=== PATIENT | male | born 1965 | race African-American/Black ===

== ENCOUNTER 2019-10-09 09:18 | Emergency (ER) | payer BC ==
[2019-10-09] MEDS ORDERED: KETOROLAC 30 MG/ML INJ ONE (09:58)
--- NOTE | 2019-10-09 10:19 | ER ---
Nurse's Notes [facility] Name: Augustus Parks Age: 53 yrs Sex: Male : 1965 Arrival Date: 10/09/2019 Time: 09:20 Bed 9 Private MD: Diagnosis: Sciatica, left side Presentation: 10/09 09:31 Presenting complaint: Patient states: left low back pain radiating to leg, took a road iw trip 2 weeks ago and was sitting in a twisted position, has been having pain since then. Transition of care: patient was not received from another setting of care. Onset of symptoms was September 29, 2019. Risk Assessment: Do you want to hurt yourself or someone else? Patient reports no desire to harm self or others. Initial Sepsis Screen: Does the patient meet any 2 criteria? No. Patient's initial sepsis screen is negative. Does the patient have a suspected source of infection? No. Patient's initial sepsis screen is negative. Care prior to arrival: None. 09:31 Method Of Arrival: Ambulatory iw 09:31 Acuity: LOBITO 4 iw Triage Assessment: 09:45 General: Appears in no apparent distress. Behavior is calm. Musculoskeletal: Range of iw motion: intact in all extremities. Historical: - Allergies: 09:32 No Known Allergies; iw - Home Meds: 09:32 unknown BP medicine [Active]; iw - PMHx: 09:32 Hypertension; iw - PSHx: 09:32 Hernia repair; iw - Immunization history:: Adult Immunizations. - Social history:: Smoking status: Patient uses tobacco products, smokes one-half pack cigarettes per day. - Ebola Screening: : Patient negative for fever greater than or equal to 101.5 degrees Fahrenheit, and additional compatible Ebola Virus Disease symptoms Patient denies exposure to infectious person Patient denies travel to an Ebola-affected area in the 21 days before illness onset No symptoms or risks identified at this time. Screenin:00 Abuse screen: Denies threats or abuse. Denies injuries from another. Nutritional iw screening: No deficits noted. Tuberculosis screening: No symptoms or risk factors identified. Fall Risk None identified. Assessment: 09:45 General: Appears in no apparent distress. Behavior is calm, cooperative. Pain: iw Complains of pain in left low back Pain radiates to left leg. Neuro: Level of Consciousness is awake, alert, obeys commands, Oriented to person, place, time, situation, Moves all extremities. Full function Denies weakness in right leg and left leg. Cardiovascular: Patient's skin is warm and dry. Respiratory: Respiratory effort is even, unlabored, Respiratory pattern is regular. GI: No signs and/or symptoms were reported involving the gastrointestinal system. : No signs and/or symptoms were reported regarding the genitourinary system. Derm: Skin is intact, is healthy with good turgor. Musculoskeletal: Range of motion: intact in all extremities, Reports pain in left low back and left leg. Vital Signs: 09:32 BP 138 / 94; Pulse 84; Resp 16; Temp 98.2; Pulse Ox 99% on R/A; Weight 111.13 kg; iw Height 6 ft. 6 in. (198.12 cm); Pain 7/10; 09:32 Body Mass Index 28.31 (111.13 kg, 198.12 cm) iw ED Course: 09:20 Patient arrived in ED. rg4 09:32 Triage completed. iw 09:32 Arm band placed on. iw 09:37 Ciera Pickett FNP-C is PHCP. kb 09:37 Kenyon Ramos MD is Attending Physician. kb 09:45 Patient has correct armband on for positive identification. iw 09:57 Kathie Mcginnis, RN is Primary Nurse. iw 10:32 No provider procedures requiring assistance completed. Patient did not have IV access iw during this emergency room visit. Administered Medications: 10:00 Drug: TORadol 30 mg Route: IM; Site: left deltoid; iw Outcome: 10:18 Discharge ordered by . kb 10:32 Discharged to home ambulatory. iw 10:32 Condition: good 10:32 Discharge instructions given to patient, Instructed on discharge instructions, follow up and referral plans. medication usage, Demonstrated understanding of instructions, follow-up care, medications, Prescriptions given X 2. 10:33 Patient left the ED. iw Signatures: Ciera Pickett FNP-C FNP-Kathie Sifuentes, RN RN Krystina Winston rg4
--- NOTE | 2019-10-09 10:19 | EDPHYS ---
Physician Documentation [facility] Name: Augustus Parks Age: 53 yrs Sex: Male : 1965 Arrival Date: 10/09/2019 Time: 09:20 Bed 9 Private MD: ED Physician Kenyon Ramos HPI: 10/09 10:02 This 53 yrs old Black Male presents to ER via Ambulatory with complaints of Back Pain. kb 10:02 The patient presents with pain that is acute, with no known mechanism of injury. kb 10:20 The symptoms are located in the left low back. Onset: The symptoms/episode kb began/occurred 3 week(s) ago, and became worse 1 week(s) ago. The pain radiates to the left leg. Associated signs and symptoms: The patient has no apparent associated signs or symptoms. The problem was sustained without known cause. Modifying factors: The patient symptoms are alleviated by nothing, the patient symptoms are aggravated by any movement. Severity of symptoms: At their worst the symptoms were moderate, in the emergency department the symptoms are unchanged. The patient has not experienced similar symptoms in the past. The patient has not recently seen a physician. 10:22 Pt reports lower left back/buttock pain that radiates down left leg. States pain kb started a few weeks ago and got worse a week ago. Historical: - Allergies: 09:32 No Known Allergies; iw - Home Meds: 09:32 unknown BP medicine [Active]; iw - PMHx: 09:32 Hypertension; iw - PSHx: 09:32 Hernia repair; iw - Immunization history:: Adult Immunizations. - Social history:: Smoking status: Patient uses tobacco products, smokes one-half pack cigarettes per day. - Ebola Screening: : Patient negative for fever greater than or equal to 101.5 degrees Fahrenheit, and additional compatible Ebola Virus Disease symptoms Patient denies exposure to infectious person Patient denies travel to an Ebola-affected area in the 21 days before illness onset No symptoms or risks identified at this time. ROS: 09:58 Constitutional: Negative for fever, chills, and weight loss, ENT: Negative for injury, kb pain, and discharge, Neck: Negative for injury, pain, and swelling, Cardiovascular: Negative for chest pain, palpitations, and edema, Respiratory: Negative for shortness of breath, cough, wheezing, and pleuritic chest pain, Abdomen/GI: Negative for abdominal pain, nausea, vomiting, diarrhea, and constipation, : Negative for injury, bleeding, discharge, and swelling, MS/Extremity: Negative for injury and deformity, Skin: Negative for injury, rash, and discoloration, Neuro: Negative for headache, weakness, numbness, tingling, and seizure. 09:58 Back: Positive for pain at rest, pain with movement, radiated pain, of the left low back. Exam: 09:58 Constitutional: This is a well developed, well nourished patient who is awake, alert, kb and in no acute distress. Head/Face: Normocephalic, atraumatic. ENT: Nares patent. No nasal discharge, no septal abnormalities noted. Tympanic membranes are normal and external auditory canals are clear. Oropharynx with no redness, swelling, or masses, exudates, or evidence of obstruction, uvula midline. Mucous membranes moist. Neck: Trachea midline, no thyromegaly or masses palpated, and no cervical lymphadenopathy. Supple, full range of motion without nuchal rigidity, or vertebral point tenderness. No Meningismus. Chest/axilla: Normal chest wall appearance and motion. Nontender with no deformity. No lesions are appreciated. Cardiovascular: Regular rate and rhythm with a normal S1 and S2. No gallops, murmurs, or rubs. Normal PMI, no JVD. No pulse deficits. Respiratory: Lungs have equal breath sounds bilaterally, clear to auscultation and percussion. No rales, rhonchi or wheezes noted. No increased work of breathing, no retractions or nasal flaring. Abdomen/GI: Soft, non-tender, with normal bowel sounds. No distension or tympany. No guarding or rebound. No evidence of tenderness throughout. Skin: Warm, dry with normal turgor. Normal color with no rashes, no lesions, and no evidence of cellulitis. MS/ Extremity: Pulses equal, no cyanosis. Neurovascular intact. Full, normal range of motion. Neuro: Awake and alert, GCS 15, oriented to person, place, time, and situation. Cranial nerves II-XII grossly intact. Motor strength 5/5 in all extremities. Sensory grossly intact. Cerebellar exam normal. Normal gait. 09:58 Back: pain, that is moderate, of the left low back, ROM is painful, with all movement, normal spinal alignment noted. Vital Signs: 09:32 BP 138 / 94; Pulse 84; Resp 16; Temp 98.2; Pulse Ox 99% on R/A; Weight 111.13 kg; iw Height 6 ft. 6 in. (198.12 cm); Pain 7/10; 09:32 Body Mass Index 28.31 (111.13 kg, 198.12 cm) iw MDM: 09:37 Patient medically screened. kb 09:56 Data reviewed: vital signs, nurses notes. Data interpreted: Pulse oximetry: on room air kb is 99 %. Interpretation: normal. ED course: Pt is adamant about getting an x-ray. Educated that an x-ray was unlikely to show any acute abnormality based on history and physical exam.. 10:16 Counseling: I had a detailed discussion with the patient and/or guardian regarding: the kb historical points, exam findings, and any diagnostic results supporting the discharge/admit diagnosis, the need for outpatient follow up, a family practitioner, to return to the emergency department if symptoms worsen or persist or if there are any questions or concerns that arise at home. 10:19 ED course: Pt is now refusing x-ray after "thinking about it.". kb Administered Medications: 10:00 Drug: TORadol 30 mg Route: IM; Site: left deltoid; iw Disposition: 15:56 Co-signature as Attending Physician, Kenyon Ramos MD. rn Disposition: 10/09/19 10:18 Discharged to Home. Impression: Sciatica, left side. - Condition is Stable. - Discharge Instructions: Sciatica, [id number], Back Exercises, [id number]. - Prescriptions for Cyclobenzaprine 10 mg Oral Tablet - take 1 tablet by ORAL route every 8 hours As needed; 21 tablet. Diclofenac Sodium 75 mg Oral Tablet, Delayed Release (E.C.) - take 1 tablet by ORAL route 2 times per day As needed; 30 tablet. - Medication Reconciliation Form, Thank You Letter, Antibiotic Education, Prescription Opioid Use, Work release form form. - Follow up: Emergency Department; When: As needed; Reason: Worsening of condition. Follow up: Private Physician; When: 2 - 3 days; Reason: Recheck today's complaints, Continuance of care, Re-evaluation by your physician. Signatures: Dispatcher [employer] Ciera Coleman, OPHTHALMIC ASST-C OPHTHALMIC ASST-Ckb Kathie Mcginnis, RN RN iw Kenyon Ramos MD MD rn physician office: (The following items were deleted from the chart) 10:24 09:55 Hip Left 2 View+RAD.RAD.BRZ ordered. [facility] 10:33 10:18 10/09/2019 10:18 Discharged to Home. Impression: Sciatica, left side. Condition iw is Stable. Forms are Medication Reconciliation Form, Thank You Letter, Antibiotic Education, Prescription Opioid Use. Follow up: Emergency Department; When: As needed; Reason: Worsening of condition. Follow up: Private Physician; When: 2 - 3 days; Reason: Recheck today's complaints, Continuance of care, Re-evaluation by your physician. kb
[2019-10-09 10:55] VITALS: BP 138/94; TEMP 98.2; O2SAT 99
== END 2019-10-09 10:33 | disposition home or self-care (01) ==
LOC: ER 09:18
DX: M54.32 Sciatica, left side (principal)
CPT/HCPCS: 96372; 99283

== ENCOUNTER 2020-05-23 11:26 | Emergency (ER) | payer BC ==
[2020-05-23 14:09] LABS: Urine Blood NEGATIVE (NEG); Urine Glucose NEGATIVE (NEG); Urine Protein 1+ (NEG); Urine Specific Gravity 1.025 (1.005-1.030)
--- NOTE | 2020-05-23 14:53 | RAD REPORT ---
EXAM DESCRIPTION: CT - Spine Lumbar Wo Con - 05/23/2020 2:33 pm CLINICAL HISTORY: LOWER BACK PAIN COMPARISON: None. TECHNIQUE: Thin section axial imaging of the lumbar spine was performed. Sagittal and coronal recon struction images were generated and reviewed. All CT scans are performed using dose optimization technique as appropriate and may include automated exposure control or mA/KV adjustment according to patient size. FINDINGS: Lumbar bodies are normal in height and alignment. No fracture or acute lumbar finding. Mil d facet joint degenerative changes are present in the lower lumbar spine. No pars defects are identif ied. There is no paraspinal mass seen. Central canal detail is inherently limited on CT imaging. No disc herniation suspected. There is disc bulge at L4-5 in the central canal and exit foramina. No central spinal stenosis seen. Mild bilatera l foraminal stenosis is suspected. . IMPRESSION: L4-5 disc bulge and endplate spurring likely causing bilateral foraminal encroachment. N o disc herniation or central spinal stenosis at this level. Remainder of the examination without significant finding.
[2020-05-23] MEDS ORDERED: ACETAMINOPHEN 500 MG TAB ONE (15:13)
--- NOTE | 2020-05-23 15:27 | EDPHYS ---
Physician Documentation [facility] Name: Augustus Parks Age: 54 yrs Sex: Male : 1965 Arrival Date: 05/23/2020 Time: 11:32 Bed 25 Private MD: ED Physician Sundeep Herman HPI: 05/23 14:48 This 54 yrs old Black Male presents to ER via Ambulatory with complaints of Low Back mh7 Pain. 14:48 The patient presents with pain that is acute. The symptoms are located in the low back. mh7 The pain does not radiate. The problem was sustained when bending over, when lifting heavy object, from twisting. Onset: The symptoms/episode began/occurred 1 week(s) ago. Modifying factors: The patient symptoms are alleviated by remaining still, the patient symptoms are aggravated by movement. Associated signs and symptoms: Pertinent negatives: abdominal pain, chest pain, constipation, dysuria, fever, headache, hematuria, incontinence, nausea, numbness, tingling, urinary retention, vomiting, weakness. Severity of symptoms: At their worst the symptoms were moderate, yesterday, in the emergency department the symptoms have improved, moderately. The patient has experienced similar episodes in the past, a few times. Historical: - Allergies: 11:43 No Known Allergies; ll1 - PMHx: 11:43 Hypertension; ll1 - PSHx: 11:43 Hernia repair; ll1 - Immunization history:: Adult Immunizations up to date. - Social history:: Smoking status: Patient reports the use of cigarette tobacco products, smokes one-half pack cigarettes per day, Patient/guardian denies using alcohol, street drugs. ROS: 14:48 Constitutional: Negative for fever, chills, and weight loss, Eyes: Negative for injury, mh7 pain, redness, and discharge, ENT: Negative for injury, pain, and discharge, Neck: Negative for injury, pain, and swelling, Cardiovascular: Negative for chest pain, palpitations, and edema, Respiratory: Negative for shortness of breath, cough, wheezing, and pleuritic chest pain, Abdomen/GI: Negative for abdominal pain, nausea, vomiting, diarrhea, and constipation, : Negative for injury, bleeding, discharge, and swelling, MS/Extremity: Negative for injury and deformity, Skin: Negative for injury, rash, and discoloration, Neuro: Negative for headache, weakness, numbness, tingling, and seizure, Psych: Negative for depression, anxiety, suicide ideation, homicidal ideation, and hallucinations, Allergy/Immunology: Negative for hives, rash, and allergies, Endocrine: Negative for neck swelling, polydipsia, polyuria, polyphagia, and marked weight changes, Hematologic/Lymphatic: Negative for swollen nodes, abnormal bleeding, and unusual bruising. Exam: 14:48 Constitutional: This is a well developed, well nourished patient who is awake, alert, mh7 and in no acute distress. Head/Face: Normocephalic, atraumatic. Eyes: Pupils equal round and reactive to light, extra-ocular motions intact. Lids and lashes normal. Conjunctiva and sclera are non-icteric and not injected. Cornea within normal limits. Periorbital areas with no swelling, redness, or edema. ENT: Nares patent. No nasal discharge, no septal abnormalities noted. Tympanic membranes are normal and external auditory canals are clear. Oropharynx with no redness, swelling, or masses, exudates, or evidence of obstruction, uvula midline. Mucous membranes moist. Neck: Trachea midline, no thyromegaly or masses palpated, and no cervical lymphadenopathy. Supple, full range of motion without nuchal rigidity, or vertebral point tenderness. No Meningismus. Chest/axilla: Normal chest wall appearance and motion. Nontender with no deformity. No lesions are appreciated. Cardiovascular: Regular rate and rhythm with a normal S1 and S2. No gallops, murmurs, or rubs. Normal PMI, no JVD. No pulse deficits. Respiratory: Lungs have equal breath sounds bilaterally, clear to auscultation and percussion. No rales, rhonchi or wheezes noted. No increased work of breathing, no retractions or nasal flaring. Abdomen/GI: Soft, non-tender, with normal bowel sounds. No distension or tympany. No guarding or rebound. No evidence of tenderness throughout. 14:48 Skin: Warm, dry with normal turgor. Normal color with no rashes, no lesions, and no evidence of cellulitis. MS/ Extremity: Pulses equal, no cyanosis. Neurovascular intact. Full, normal range of motion. Neuro: Awake and alert, GCS 15, oriented to person, place, time, and situation. Cranial nerves II-XII grossly intact. Motor strength 5/5 in all extremities. Sensory grossly intact. Cerebellar exam normal. Normal gait. Psych: Awake, alert, with orientation to person, place and time. Behavior, mood, and affect are within normal limits. 14:48 Back: pain, that is moderate, of the lumbar area, ROM is painful, with all movement, normal spinal alignment noted, CVA tenderness, is absent, vertebral tenderness, is appreciated at lumbar, muscle spasm, is appreciated in the lumbar area, Straight leg raises: of both lower extremities does not illicit pain. Vital Signs: 11:41 BP 124 / 86; Pulse 86; Resp 18; Temp 98.2; Pulse Ox 97% ; Pain 7/10; ll1 13:29 BP 132 / 89 LA (auto/lg); Pulse 68; Resp 16; Pulse Ox 98% on R/A; jp3 14:10 BP 133 / 89; Pulse 59; Resp 15 S; Pulse Ox 100% on R/A; ca1 15:16 BP 135 / 79; Pulse 52; Resp 16 S; Pulse Ox 100% on R/A; ca1 MDM: 15:24 Differential diagnosis: arthritis, strain, fracture, sciatica, contusion, Herniated mh7 disc UTI. Data reviewed: vital signs, nurses notes, lab test result(s), urinalysis, radiologic studies, CT scan. Data interpreted: Pulse oximetry: on room air is 100 %. Interpretation: normal. Counseling: I had a detailed discussion with the patient and/or guardian regarding: the historical points, exam findings, and any diagnostic results supporting the discharge/admit diagnosis, lab results, radiology results, the need for outpatient follow up, to return to the emergency department if symptoms worsen or persist or if there are any questions or concerns that arise at home. Response to treatment: the patient's symptoms have markedly improved after treatment. 15:[address] [facility] 05/23 13:30 Order name: Urine Dipstick--Ancillary (enter results); Complete Time: 14:16 eb 05/23 14:18 Order name: CT Lumbar Spine Wo Con; Complete Time: 15:17 [facility] Administered Medications: 15:07 Drug: Tylenol 1000 mg Route: PO; ca1 15:38 Follow up: Response: No adverse reaction; Pain is decreased ca1 Disposition: 05/23/20 15:26 Discharged to Home. Impression: Low back pain. - Condition is Stable. - Discharge Instructions: Back Pain, Adult, Back Injury Prevention, [id number]. - Prescriptions for Robaxin 500 mg Oral Tablet - take 2 tablet by ORAL route every 6 hours As needed; 40 tablet. Tramadol 50 mg Oral Tablet - take 1 tablet by ORAL route every 8 hours as needed; 12 tablet. - Medication Reconciliation Form, Thank You Letter, Antibiotic Education, Prescription Opioid Use form. - Follow up: Private Physician; When: 1 - 2 days; Reason: Worsening of condition, Recheck today's complaints, Re-evaluation by your physician. - Problem is an acute exacerbation. - Symptoms have improved. Signatures: Dispatcher [employer] EDMS Frances Khan RN RN ca1 Gardenia Harman RN RN ll1 Sundeep Herman MD MD mh7 Corrections: (The following items were deleted from the chart) 15:39 15:26 05/23/2020 15:26 Discharged to Home. Impression: Low back pain. Condition is ca1 Stable. Forms are Medication Reconciliation Form, Thank You Letter, Antibiotic Education, Prescription Opioid Use. Follow up: Private Physician; When: 1 - 2 days; Reason: Worsening of condition, Recheck today's complaints, Re-evaluation by your physician. Problem is an acute exacerbation. Symptoms have improved. mh7
--- NOTE | 2020-05-23 15:27 | ER ---
Nurse's Notes [facility] Name: Augustus Parks Age: 54 yrs Sex: Male : 1965 Arrival Date: 05/23/2020 Time: 11:32 Bed 25 Private MD: Diagnosis: Low back pain Presentation: 05/23 11:41 Chief complaint: Patient states: 3 days of left lower back pain, malaise, decreased ll1 appetite. Had diarrhea that has resolved today, slight nausea. No fever or cough. Coronavirus screen: Proceed with normal triage. Patient denies a cough. Patient reports shortness of breath or difficulty breathing. Patient denies measured and/or subjective temperature greater than 100.4F prior to today's visit. Patient denies travel on a cruise ship or to a country the [facility] currently lists as an affected area. Patient denies contact with known and/or suspected case of COVID-19. Ebola Screen: Patient denies travel to an Ebola-affected area in the 21 days before illness onset. Initial Sepsis Screen: Does the patient meet any 2 criteria? No. Patient's initial sepsis screen is negative. Risk Assessment: Do you want to hurt yourself or someone else? Patient reports no desire to harm self or others. Onset of symptoms was May 20, 2020. 11:41 Method Of Arrival: Ambulatory ll1 11:41 Acuity: LOBITO 3 ll1 13:17 Initial Sepsis Screen: Does the patient have a suspected source of infection? No. ca1 Patient's initial sepsis screen is negative. Historical: - Allergies: 11:43 No Known Allergies; ll1 - PMHx: 11:43 Hypertension; ll1 - PSHx: 11:43 Hernia repair; ll1 - Immunization history:: Adult Immunizations up to date. - Social history:: Smoking status: Patient reports the use of cigarette tobacco products, smokes one-half pack cigarettes per day, Patient/guardian denies using alcohol, street drugs. Screenin:15 Abuse screen: Denies threats or abuse. Denies injuries from another. Nutritional ca1 screening: No deficits noted. Tuberculosis screening: No symptoms or risk factors identified. Fall Risk None identified. Assessment: 13:15 General: Appears in no apparent distress. comfortable, Behavior is calm, cooperative, ca1 appropriate for age. Pain: Complains of pain in low back area Pain currently is 7 out of 10 on a pain scale. Neuro: Level of Consciousness is awake, alert, obeys commands, Oriented to person, place, time, situation, Appropriate for age. Cardiovascular: Heart tones S1 S2 present Capillary refill < 3 seconds Patient's skin is warm and dry. Respiratory: Airway is patent Respiratory effort is even, unlabored, Respiratory pattern is regular, symmetrical, Breath sounds are clear bilaterally. GI: Abdomen is flat, non-distended, Bowel sounds present X 4 quads. Abd is soft and non tender X 4 quads. Reports diarrhea. : No signs and/or symptoms were reported regarding the genitourinary system. EENT: No signs and/or symptoms were reported regarding the EENT system. Derm: Skin is intact, is healthy with good turgor, Skin is pink, warm \T\ dry. Musculoskeletal: Circulation, motion, and sensation intact. Capillary refill < 3 seconds. 14:10 Reassessment: Patient appears in no apparent distress at this time. Patient and/or ca1 family updated on plan of care and expected duration. Pain level reassessed. Patient is alert, oriented x 3, equal unlabored respirations, skin warm/dry/pink. 15:16 Reassessment: Patient appears in no apparent distress at this time. Patient and/or ca1 family updated on plan of care and expected duration. Pain level reassessed. Patient is alert, oriented x 3, equal unlabored respirations, skin warm/dry/pink. Vital Signs: 11:41 BP 124 / 86; Pulse 86; Resp 18; Temp 98.2; Pulse Ox 97% ; Pain 7/10; ll1 13:29 BP 132 / 89 LA (auto/lg); Pulse 68; Resp 16; Pulse Ox 98% on R/A; jp3 14:10 BP 133 / 89; Pulse 59; Resp 15 S; Pulse Ox 100% on R/A; ca1 15:16 BP 135 / 79; Pulse 52; Resp 16 S; Pulse Ox 100% on R/A; ca1 ED Course: 11:32 Patient arrived in ED. fj1 11:43 Triage completed. ll1 11:44 Arm band placed on Patient notified of wait time. ll1 13:13 Frances Khan, RN is Primary Nurse. ca1 13:15 Patient has correct armband on for positive identification. Bed in low position. Call ca1 light in reach. Side rails up X 1. Pulse ox on. NIBP on. 13:28 Warm blanket given. Verbal reassurance given. jp3 13:28 Urine collected: clean catch specimen, clear, josé colored. Patient maintains SpO2 jp3 saturation greater than 95% on room air. 13:56 Sundeep Herman MD is Attending Physician. [facility] 14:32 CT Lumbar Spine Wo Con In Process Unspecified. EDMS 15:38 No provider procedures requiring assistance completed. Patient did not have IV access ca1 during this emergency room visit. Administered Medications: 15:07 Drug: Tylenol 1000 mg Route: PO; ca1 15:38 Follow up: Response: No adverse reaction; Pain is decreased ca1 Outcome: 15:26 Discharge ordered by . [facility] 15:38 Discharged to home ambulatory. ca1 15:38 Condition: stable 15:38 Discharge instructions given to patient, Instructed on discharge instructions, follow up and referral plans. no drinking with medication, no driving heavy equipment, medication usage, Demonstrated understanding of instructions, follow-up care, medications, Prescriptions given X 2. 15:39 Patient left the ED. ca1 Signatures: Dispatcher [employer] EDMS Hesham Ellington jp3 Frances Khan RN RN ca1 Mik Casiano fj1 Gardenia Harman RN RN ll1 Sundeep Herman MD MD [facility] Corrections: (The following items were deleted from the chart) 13:43 13:15 GI: Abdomen is flat, non-distended, Bowel sounds present X 4 quads. Abd is soft ca1 and non tender X 4 quads. ca1
[2020-05-23 15:45] VITALS: TEMP 98.2
[2020-05-23 15:48] VITALS: O2SAT 100
[2020-05-23 15:49] VITALS: BP 135/79
== END 2020-05-23 15:39 | disposition home or self-care (01) ==
LOC: ER 11:26
DX: M54.5 Low back pain (principal); I10 Essential (primary) hypertension; F17.210 Nicotine dependence, cigarettes, uncomplicated
CPT/HCPCS: 72131; 81003; 99284

== ENCOUNTER 2022-03-31 11:09 | Day surgery (SDC) | payer BC ==
[2022-03-30 09:15] LABS: Absolute Lymphocytes (CBC) 1.5 K/uL (0.7-4.9); Hematocrit 42.5 % (39.6-49.0); Lymphocytes % 30.2 % (15.3-44.8); MPV 8.4 fL (7.6-11.3); RBC Red Blood Cell Count 4.45 M/uL (4.33-5.43)
[2022-03-30 09:27] LABS: BUN Blood Urea Nitrogen 9 mg/dL (7-18); Bicarbonate 29 mmol/L (21-32); Glucose Level 101 mg/dL (74-106); Potassium 3.6 mmol/L (3.5-5.1); Sodium Level 142 mmol/L (136-145)
[2022-03-30 10:03] LABS: Blood Morphology Comment NOT SEEN (NOT SEEN); Platelet Estimate ADEQ; Platelets, Giant FEW; White Blood Cell Scan OK (OK)
[2022-03-31] MEDS ORDERED: Ringers Lactate 1,000 ML IV ONE (11:35)
[2022-03-31] MEDS ORDERED: CEFAZOLIN SODIUM 1 GM/VIAL ONE (11:35)
[2022-03-31] MEDS ORDERED: NA CHLORIDE 0.9% 50 ML ONE (11:35)
[2022-03-31] MEDS ORDERED: FENTANYL CITR 100 MCG/2 ML ONE (12:09)
[2022-03-31] MEDS ORDERED: propofoL 200 MG/20 ML VIAL IV ONE (12:09)
[2022-03-31] MEDS ORDERED: MIDAZOLAM HCL 2 MG/2 ML INJ ONE ×2 (12:09→14:25)
[2022-03-31] MEDS ORDERED: BUPIVACAINE 0.5% PF 10 ML VIAL ONE (12:09)
[2022-03-31] MEDS ORDERED: ONDANSETRON 4 MG/2 ML VIAL ONE (12:10)
[2022-03-31] MEDS ORDERED: LIDOCAINE 2% MPF 5 ML VIAL ONE (12:10)
[2022-03-31] MEDS ORDERED: ROCURONIUM 50 MG/5 ML VIAL IV ONE (12:10)
--- NOTE | 2022-03-31 12:25 | P.HP ---
Date of Service: 03/31/22 PC: This 56-year-old male presents for laparoscopic repair of a recurrent incarcerated umbilical hernia. HPC: Patient had a previous repair done, but presents now with a bulge just above his umbilicus. Painful to the touch. Nonreducible. CT scan demonstrates recurrence of umbilical hernia. PSHx: Repair of umbilical hernia PMHx: Hypertension Social Hx: No known allergies Sys R: No cough, wheeze, shortness of breath. No chest pain or palpitations. No change in bowel habit. Denies any difficulty with urination. This area has been causing increasing pain and discomfort whenever he tries to bend or lift and has been getting worse over the last few months. O/E: Awake alert vital signs are stable HEENT: Within normal limits Chest: Air entry equal bilaterally Abd: Linear incision below his umbilicus from previous umbilical surgery repair. Has a bulge above the umbilicus that is painful to the touch, nonreducible, is not inflamed at the moment. Bandon: Intact Data: CT scan demonstrates recurrence of umbilical hernia Impression: Recurrent incarcerated umbilical hernia Plan: I will taken the operating room for laparoscopic possible open umbilical hernia repair with mesh. The risks of this procedure have been discussed. The possibility of bleeding, infection, injury to bowel and surrounding structures was outlined. Infection, hernia recurrence, and need to remove the mesh were explained. Chronic abdominal pain was outlined. He understands and wants us to proceed.
[2022-03-31] MEDS ORDERED: EPHEDRINE SULF 50 MG/ML VIAL ONE (13:54)
[2022-03-31] MEDS ORDERED: GLYCOPYRROLATE 0.2 MG/ML SYR ONE ×2 (14:10→14:11)
[2022-03-31] MEDS ORDERED: NEOSTIGMINE 1 MG/ML -10 ML VIAL ONE (14:11)
--- NOTE | 2022-03-31 14:12 | P.OP ---
Preoperative diagnosis: Incarcerated umbilical hernia Postoperative diagnosis: The same Primary procedure: Laparoscopic reduction repair of incarcerated umbilical hernia with mesh Anesthesia: General Estimated blood loss: Less than 10 cc Specimen: Incarcerated hernia sac Operative Technique: The patient brought the operating room and placed supine on the table. After the induction of adequate general endotracheal anesthesia, the area of the abdomen was prepped with a DuraPrep solution, a Boyd catheter was inserted, and he was draped in the usual aseptic manner. Attention was turned towards the left upper portion of the abdomen. A skin incision was made. This was brought down through the skin and subcutaneous tissue. We encountered the muscle layers. I did not feel I would have enough and room to adequately do the procedure from this trocar site. Hence another skin incision was made. This was more superior and lateral to the prior. Through this we were able to calm down and identify the muscle layers. As we came through we saw the peritoneum. The Visiport was now used to enter the peritoneal cavity and created pneumoperitoneum to approximately 12 mmHg. We were able to use our prior 10 mm skin incision to place a 5 mm trocar through this area. A pneumoperitoneum was created to 12 mmHg. On inspection of the anterior abdominal wall we can see the part of the umbilical ligament that was incarcerated through the true umbilical defect in the fascia. This was grasped and retracted back into the peritoneal cavity. Applying external pressure we were able to trim back the sac at the level of the anterior abdominal wall. It was detached from the rest of the ligament. This was brought out and sent as a separate specimen. Attention was now turned towards this area. Were able to peel back the peritoneum to expose her margins. 86 inch piece of mesh circular was placed into the peritoneal cavity. Having placed a sutures on his poles we were able to grasp these using the Endo Close and bring the mesh to the anterior abdominal wall. Ensuring correct orientation of the mesh sides, the tacker was now used to fix it to the anterior abdominal wall. In order to get the left side a right lower quadrant skin incision was made through which we placed a 5 mm trocar. This allowed us to complete the fixation of the mesh to the anterior abdominal wall. This was all done under low pressure having deflated the peritoneal cavity to approximately 4 mmHg. At this point the pneumoperitoneum was restored. We had excellent coverage of defects with good fixation of the mesh. The 10 mm trocar site had penetrated the peritoneal cavity was closed using the Endo Close and a absorbable suture. The pneumoperitoneum was now collapsed, the trochars removed, and sridevi applied to the skin. At the end of the procedure he was stable was sent to the recovery room. Needle sponge instrument count were correct. No drains were placed. Complications: None Transferred to: Recovery Room Condition: Good
[2022-03-31] MEDS ORDERED: KETOROLAC 30 MG/ML INJ ONE (14:18)
[2022-03-31] MEDS ORDERED: HYDROMORPHONE HCL 1 MG/ML INJ ONE (14:24)
[2022-03-31] MEDS: HYDROMORPHONE HCL 1 MG/ML INJ ONE ×4 (14:30→14:45)
[2022-03-31] MEDS ORDERED: ONDANSETRON 4 MG/2 ML VIAL IV PRN (14:44)
[2022-03-31] MEDS: FENTANYL CITR 100 MCG/2 ML ONE ×2 (14:56→15:01)
[2022-03-31] MEDS ORDERED: NA CHLORIDE 0.9% 1,000 ML IV SCH (15:00)
[2022-03-31] MEDS: HYDROCODONE/APAP 7.5/325 MG TAB PO PRN ×2 (15:39→21:38)
[2022-03-31] MEDS ORDERED: MORPHINE 4 MG/ML SYR IV SCH (16:00)
[2022-03-31 21:56] VITALS: BMI 23.6
[2022-04-01 04:12] VITALS: O2SAT 97
[2022-04-01] MEDS: HYDROCODONE/APAP 7.5/325 MG TAB PO PRN (09:48)
[2022-04-01 12:02] VITALS: BP 158/83; TEMP 98.3
== END 2022-04-01 14:15 | disposition home or self-care (01) ==
LOC: OR 11:09 → 2ND 14:54 → OR 04-01 14:15
PROVIDERS: ATTEND Surgery
PROC: 0WUF4JZ Supplement Abdominal Wall with Synthetic Substitute, Percutaneous Endoscopic Approach (ICD-10-PCS; principal; 2022-03-31 12:00)
DX: K42.0 Umbilical hernia with obstruction, without gangrene (principal); Z20.822 Contact with and (suspected) exposure to COVID-19
CPT/HCPCS: 93005; 85025; 80048; 36415; 88302; 94010; 49653; U0003; J2704; J2710; J2250; J3010 ×2; J1170 ×3; J7120; J2405 ×2; J0690